=== PATIENT | male | born 1985 | race Caucasian/White ===

== ENCOUNTER 2019-03-08 22:24 | Emergency (ER) | payer SELFPAY ==
[2019-03-08 22:44] VITALS: BP 122/77; PULSE 80; TEMP 98.2; BMI 27.3
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
[2019-03-08] MEDS ORDERED: KETOROLAC TROMETHAMINE 30 MG/1 ML VIAL IM ONE (23:57)
[2019-03-08] MEDS ORDERED: CYCLOBENZAPRINE HCL 10 MG TABLET (FP) PO ONE (23:57)
[2019-03-09] MEDS ORDERED: CYCLOBENZAPRINE HCL 10 MG TABLET (FP) ONE (00:03)
[2019-03-09] MEDS ORDERED: KETOROLAC TROMETHAMINE 30 MG/1 ML VIAL ONE (00:03)
[2019-03-09] MEDS ORDERED: LIDOCAINE 5% TOPICAL PATCH ONE (00:09)
[2019-03-09] MEDS ORDERED: LIDOCAINE 5% TOPICAL PATCH TP ONE (00:15)
[2019-03-09] MEDS ORDERED: LIDOCAINE 5% TOPICAL PATCH TP SCH (10:00)
--- NOTE | 2019-03-09 13:15 | EKG ---
Test Reason : Blood Pressure : / mmHG Vent. Rate : 071 BPM Atrial Rate : 071 BPM P-R Int : 156 ms QRS Dur : 086 ms QT Int : 370 ms P-R-T Axes : 059 058 061 degrees QTc Int : 402 ms NORMAL SINUS RHYTHM NORMAL ECG NO PREVIOUS ECGS AVAILABLE Confirmed by MUSTAPHA DUMONT MD ([id number]) on 03/09/2019 1:14:46 PM Referred By: Confirmed By:MUSTAPHA DUMONT MD
[2019-03-09] MEDS ORDERED: LIDOCAINE PATCH REMOVAL MC SCH ×2 (22:00)
== END 2019-03-09 00:20 | disposition home or self-care (01) ==
LOC: JER 22:24
DX: M54.40 Lumbago with sciatica, unspecified side (principal)
CPT/HCPCS: 93005; 93010; 99281-25

== ENCOUNTER 2022-03-08 16:01 | Emergency (ER) | payer OTHER ==
[2022-03-08 17:00] VITALS: BP 143/87; PULSE 98; RESP 20; TEMP 98.2; BMI 28.1
[2022-03-08] MEDS ORDERED: ALBUTEROL SO4 2.5/IPRATROPIUM 0.5 INH SOL 3 ML VIAL.NEB. NEB ONE (17:21)
== END 2022-03-08 19:03 | disposition home or self-care (01) ==
LOC: JER 16:01
PROC: 3E0F7GC Introduction of Other Therapeutic Substance into Respiratory Tract, Via Natural or Artificial Opening (ICD-10-PCS; principal; 2022-03-08)
DX: R05.9 Cough, unspecified (principal)
CPT/HCPCS: 71046-TC-FY; 99283-25

== ENCOUNTER 2022-06-08 17:08 | Emergency (ER) | payer OTHER ==
[2022-06-08 17:19] VITALS: BP 117/72; RESP 18; TEMP 98.4; BMI 28.1
[2022-06-08] MEDS ORDERED: SODIUM CHLORIDE 0.9% 500 ML INFUS.BAG IV ONE (18:14)
[2022-06-08] MEDS ORDERED: MAG HYDROX/AL HYDROX/SIMETH 30 ML UNIT-DOSE CUP PO ONE (18:14)
[2022-06-08] MEDS ORDERED: FAMOTIDINE 20 MG/50 ML IVPB 20 MG/50 ML MG IVPB ONE ×2 (18:14→18:24)
[2022-06-08] MEDS ORDERED: METOCLOPRAMIDE HCL INJECTION 10 MG/2 ML VIAL IVPUSH ONE (18:15)
[2022-06-08] MEDS ORDERED: METOCLOPRAMIDE HCL INJECTION 10 MG/2 ML VIAL ONE (18:24)
[2022-06-08] MEDS ORDERED: MAG HYDROX/AL HYDROX/SIMETH 30 ML UNIT-DOSE CUP ONE (18:24)
[2022-06-08 21:03] LABS: BASO % 0.2 % (0-2.0); EOS % 1.2 % (0-4.5); HEMATOCRIT 44.7 % (35.4-49); HEMOGLOBIN 14.5 GM/dL (11.7-16.9); LYMPH % 15.2 % (8-40); MCH 28.8 pg (25.7-33.7); MCHC 32.5 g/dl (32.0-35.9); MEAN CELL VOLUME 88.6 fl (80-96); MEAN PLT VOLUME 8.1 fl (7.5-11.1); MONO % 8.3 % (3.8-10.2); NEUT % 75.1 % (42.8-82.8); PLATELET COUNT 265 10^3/uL (134-434); RBC 5.04 M/mm3 (4.00-5.60); RDW 14.2 % (11.9-15.9); WHITE BLOOD COUNT 7.9 K/mm3 (4.0-10.0)
[2022-06-08 21:21] LABS: ALBUMIN 3.9 g/dl (3.4-5.0); BLOOD UREA NITROGEN 23.4 mg/dL (7-18); MAGNESIUM 1.8 mg/dL (1.8-2.4)
[2022-06-08 21:25] LABS: BILIRUBIN,TOTAL 0.8 mg/dL (0.2-1); TOT PROT 7.6 g/dl (6.4-8.2)
[2022-06-08 21:35] VITALS: PULSE 105
[2022-06-08] MEDS ORDERED: IBUPROFEN 600 MG TABLET (FP) PO ONE ×2 (21:37→21:45)
== END 2022-06-08 22:22 | disposition home or self-care (01) ==
LOC: JER 17:08
PROC: 3E033GC Introduction of Other Therapeutic Substance into Peripheral Vein, Percutaneous Approach (ICD-10-PCS; principal; 2022-06-08)
DX: R42 Dizziness and giddiness (principal); B34.9 Viral infection, unspecified
CPT/HCPCS: 0241U-QW; 36415; 71045-TC-FY; 80053; 83690; 83735; 85025; 93005; 93010; 99285-25